=== PATIENT | male | born 1945 | race Caucasian/White ===

== ENCOUNTER 2020-02-07 14:50 | Emergency (ER) | payer MEDICARE, OTHER ==
[~2020-02-07 14:50] MED LIST: ACETAMINOPHEN500 M1 PO; ALLOPURINOL300 MG PO; AMARYL2 MG PO; ASPIRIN325 MG PO; CARDURA2 MG PO; CIPRO500 MG PO; COREG 3.125M3.125 MG PO; COZAAR50 MG PO; ISMO20 MG PO; JANUMET 50-5001 EACH PO; JANUVIA50 MG PO; LANTUS **100 UNITS/ SC; LIPITOR20 MG PO; MOBIC7.5 MG PO; NORCO 5-325 TA1 EACH PO; NORCO 7.5-3251 EACH PO; ONDANSETRON ODT4 MG SL; TESSALON PERLE100 MG PO; VITAMIN B-121000 MC1 PO; ZOFRAN4 MG PO; [UNRECOGNIZED DRUG - OTHER]; [UNRECOGNIZED DRUG - OTHER]
[2020-02-07] MEDS ORDERED: CYCLOBENZAPRINE10 MG PO (18:05)
[2020-02-07] MEDS ORDERED: PREDNISONE 20MG20 MG PO (18:05)
== END 2020-02-07 18:22 | disposition home or self-care (01) ==
LOC: FER 14:50
DX: S39.012A Strain of muscle, fascia and tendon of lower back, initial encounter (principal); I10 Essential (primary) hypertension; E11.9 Type 2 diabetes mellitus without complications; E78.5 Hyperlipidemia, unspecified; Z88.5 Allergy status to narcotic agent; Z79.82 Long term (current) use of aspirin; Z79.899 Other long term (current) drug therapy; Z79.84 Long term (current) use of oral hypoglycemic drugs; X58.XXXA Exposure to other specified factors, initial encounter; Y92.009 Unspecified place in unspecified non-institutional (private) residence as the place of occurrence of the external cause
CPT/HCPCS: 72100; 73502; 96372; J1100; J1885

== ENCOUNTER 2021-05-11 05:30 | Day surgery (SDC) | payer MEDICARE, OTHER ==
[~2021-05-11] VITALS: Ht 178 cm; Wt 95.0 kg
[~2021-05-11 05:30] MED LIST changes: +CYCLOBENZAPRINE10 MG PO; +LANTUS SOL100 UNIT/1 SC; +PREDNISONE 20MG20 MG PO
[2021-05-11 06:38] LABS: BUN/CREAT RATIO (CALC) 20.2 RATIO; CREATININE 0.99 mg/dL (0.67-1.17); POTASSIUM 4.5 mmol/L (3.5-5.1)
--- NOTE | 2021-05-11 11:26 | NUR ---
PT. HAD A RRTSR THIS DATE. PT. WILL D/CH OME WITH SPOUSE. AT THIS TIME, PT DOES NOT HAVE ANY DISCHARGE NEEDS.
[2021-05-12 05:59] LABS: BASOPHIL 0.1 % (0-2); EOSINOPHIL 0.1 % (0-7); HCT 31.6 % (42.0-52.0); LYMPHOCYTE 17.8 % (15-48); MCH 33.8 pg (25.0-31.0); MCHC 34.8 g/dL (32.0-36.0); MCV 97.2 fL (78.0-100.0); MONOCYTE 9.7 % (0-12); MPV 9.5 fL (6.0-9.5); NEUTROPHIL 71.6 % (41-80); NRBC 0; PLT 126 K/uL (150-400); RBC 3.25 M/uL (4.70-6.00); RDW 12.2 % (11.5-14.0); WBC 14.6 K/uL (4.0-10.5)
[2021-05-12 06:17] LABS: CREATININE 1.12 mg/dL (0.67-1.17); POTASSIUM 4.8 mmol/L (3.5-5.1)
[2021-05-12] MEDS ORDERED: FEOSOL325 MG PO (08:35)
[2021-05-12] MEDS ORDERED: OXYCODONE-ACET1 EAC1 PO (08:35)
[2021-05-12] MEDS ORDERED: ATARAX25 MG PO (09:14)
== END 2021-05-12 11:44 | disposition home or self-care (01) ==
LOC: FAS 05:30 → EDSTATUS 07:00 → FMS 08:49 → FAS 05-12 11:44
PROVIDERS: Anesthesiology; Legal Medicine
DX: M19.011 Primary osteoarthritis, right shoulder (principal); E11.9 Type 2 diabetes mellitus without complications; I10 Essential (primary) hypertension; E78.5 Hyperlipidemia, unspecified; G89.18 Other acute postprocedural pain; Z88.8 Allergy status to other drugs, medicaments and biological substances; Z79.4 Long term (current) use of insulin; Z79.899 Other long term (current) drug therapy
CPT/HCPCS: 36415; 73020; 80048; 85025; 86850; 86900; 86901; 94010; 94762; 97116; 97162; 97165; 97535; C1713; C1776; J0171; J0697; J1100; J1170; J1200; J1815; J1885; J2250; J2270; J2405; J2704; J2795; J7120

== ENCOUNTER → 2021-10-30 | Day surgery (SDC) | payer MEDICARE, OTHER ==
[~2021-10-30] VITALS: Ht 178 cm; Wt 95.7 kg
[~2021-10-30] MED LIST changes: +ATARAX25 MG PO; +FEOSOL325 MG PO; +HUMALOG100 UNIT/3 SC; -ISMO20 MG PO; +ISOSORBIDE MONO30 MG PO; -LANTUS **100 UNITS/ SC; +OMEPRAZOLE40 MG PO; +OXYCODONE-ACET1 EAC1 PO
[2021-10-30 08:05] LABS: HCT 38.5 % (42.0-52.0); HGB 13.6 g/dl (13.2-18.0); MCH 33.3 pg (25.0-31.0); MCHC 35.3 g/dL (32.0-36.0); MCV 94.4 fL (78.0-100.0); MPV 9.2 fL (6.0-9.5); RBC 4.08 M/uL (4.70-6.00); RDW 12.3 % (11.5-14.0); WBC 7.8 K/uL (4.0-10.5)
[2021-10-30 10:16] LABS: BUN/CREAT RATIO (CALC) 20.5 RATIO; CREATININE 1.22 mg/dL (0.67-1.17); GLOBULIN (CALCULATION) 3.3 g/dL; POTASSIUM 4.2 mmol/L (3.5-5.1); TOTAL PROTEIN 7.3 g/dL (6.4-8.2)
== END | disposition home or self-care (01) ==
LOC: FAS 07:23
PROVIDERS: Surgery
DX: K22.2 Esophageal obstruction (principal); K21.9 Gastro-esophageal reflux disease without esophagitis; K29.80 Duodenitis without bleeding; K31.9 Disease of stomach and duodenum, unspecified; Z88.8 Allergy status to other drugs, medicaments and biological substances; Z79.82 Long term (current) use of aspirin; Z79.899 Other long term (current) drug therapy; R19.7 Diarrhea, unspecified
CPT/HCPCS: 36415; 80053; C1726; J1610; J2704; J7120